=== PATIENT | female | born 1995 | race Caucasian/White ===

== ENCOUNTER 2016-06-11 | Emergency (ER) | payer SELFPAY ==
[~2016-06-11] VITALS: Ht 180.3 cm; Wt 90.6 kg
[~2016-06-11] MED LIST: BACTRIM,SEPT1 TABLET PO; CLARITIN,ALAVAR10 MG PO; CONCERTA54 MG PO; ENALAPRIL MALEA10 MG PO; EPIPEN ADU0.3 MG/0.3 IM; FLEXERIL10 MG PO; FLOVENT 11120 INHALA PO; FLUTICASONE PRO16 GM BOTH NARES; HYDROCODON-ACE1 EAC7 PO; KEFLEX500 MG PO; LEXAPRO20 MG PO; LISINOPRIL10 MG PO; LORATADINE10 M2 PO; NAPROSYN500 MG PO; PREDNISONE10 MG PO; PROAIR HFA8.5 GM PO; SAPHRIS5 MG SL; ZANTAC150 MG PO
[2016-06-11 02:07] LABS: HEMATOCRIT 38.3 % (36.0-46.0); MCH 29.7 PG (29.0-34.0); MCHC 34.2 G/DL (30.0-36.0); MCV 86.8 FL (83-99); MEAN PLAT.VOLUME 10.9 uM^3 (9.5-12.4); PLATELET COUNT 225 K/uL (156-360); RBC DIS.WIDTH-CV 12.8 % (11.8-14.6); RBC DIS.WIDTH-SD 40.1 % (39-53); RED BLOOD COUNT 4.41 M/uL (3.80-5.20); WHITE BLOOD COUNT 9.3 K/uL (4.1-10.2)
[2016-06-11 02:16] LABS: CHLORIDE 109 mEq/L (99-109); POTASSIUM 3.8 mEq/L (3.7-5.4); SODIUM 140 mEq/L (136-147)
[2016-06-11 02:18] LABS: GLUCOSE 113 mg/dL (70-99)
[2016-06-11 02:19] LABS: ANION GAP 8 MEQ/L (2-14)
[2016-06-11 02:22] LABS: GFR ESTIMATE (CALCULATED) > 59 mL/min/
[2016-06-11 02:23] LABS: UREA NITROGEN (BUN) 10 mg/dL (9-23)
[2016-06-11 02:30] LABS: TROP-I INTERPRETATION NEGATIVE; TROPONIN-I < 0.01 ng/mL (0.0-0.30)
[2016-06-11 02:31] LABS: QUANTITATIVE HCG < 4.0 MIU/ML
[2016-06-11 03:19] VITALS: BP 107/68
== END 2016-06-11 03:22 | disposition home or self-care (01) ==
LOC: EME
PROVIDERS: Emergency Medicine
DX: R07.9 Chest pain, unspecified (principal); G89.29 Other chronic pain; I10 Essential (primary) hypertension; Z95.4 Presence of other heart-valve replacement; F17.200 Nicotine dependence, unspecified, uncomplicated
CPT/HCPCS: 71020; 80048; 84484; 84702; 85027; 93005; 99281; 99284

== ENCOUNTER 2016-11-03 21:53 | Emergency (ER) | payer SELFPAY ==
[~2016-11-03] VITALS: Ht 180.3 cm; Wt 88.5 kg
[2016-11-03 23:33] LABS: ADD MIUA? YES; BILIRUBIN NEGATIVE; BLOOD NEGATIVE; COLOR YELLOW ((YELLOW)); GLUCOSE (STRIP) NEGATIVE; KETONES NEGATIVE; LEUKOCYTES NEGATIVE; NITRITE NEGATIVE; PROTEIN (STRIP) NEGATIVE; SPECIFIC GRAVITY 1.027 (1.000-1.030)
[2016-11-03 23:40] LABS: BACTERIA RARE /HPF; EPITHELIAL CELLS 2+ /HPF; MUCUS 2+ /LPF; RED BLOOD CELLS 0-5 /HPF (0-5); UCUL ADDED? NO; WHITE BLOOD CELLS NONE SEEN /HPF (0-5)
[2016-11-03 23:57] VITALS: BP 137/80
== END 2016-11-03 23:58 | disposition home or self-care (01) ==
LOC: EXP 21:53 → EME 21:53 → EXP 23:58
PROVIDERS: Physician Assistant
DX: O26.891 Other specified pregnancy related conditions, first trimester (principal); R30.0 Dysuria; R35.0 Frequency of micturition
CPT/HCPCS: 81003; 84702; 99281; 99283